=== PATIENT | female | born 1980 | race Caucasian/White ===

== ENCOUNTER 2021-03-12 09:37 | Outpatient (CLI) | payer OTHER, SELFPAY ==
--- NOTE | ~2021-03-12 | MMUS_ITS ---
EXAMINATION: MM diagnostic [facility] BI w brendan, US breast LT limited HISTORY: Painful lump at the 9:00 location of the left breast TECHNIQUE: Craniocaudal, mediolateral, and mediolateral oblique 3-D tomosynthesis images of the left breast were performed and synthetic 2-D images were generated. CAD analysis was submitted and interpr eted. High resolution limited left breast ultrasound was performed. COMPARISON: None, baseline BREAST PARENCHYMAL COMPOSITION: The breasts are heterogeneously dense, which may obscure small masses . FINDINGS: MAMMOGRAPHIC FINDINGS: There is no evidence of suspicious mass, calcification, or architectural distortion to suggest malig kelin. No mammographic correlate is identified for the reported palpable left breast lump. ULTRASOUND: There is an 8 mm x 4 mm oval, hypoechoic mass with indistinct margins at the 9:00 location with the n ipple corresponding to the area of palpable concern which appears to be within the skin. There is inc reased vascularity to this region. IMPRESSION: 1. Likely small focus of skin infection in the left breast corresponding to the palpable abnormality of concern. 2. Recommend repeat targeted left breast ultrasound in approximately four weeks after antibiotic ther apy to evaluate for resolution. If findings do not improve after antibiotic therapy, ultrasound-guide d biopsy would be recommended. BI-RADS category 4, suspicious findings. Reviewed, dictated and finalized at location A. IMPRESSION: 1. Likely small focus of skin infection in the left breast corresponding to the palpable abnormality of concern. 2. Recommend repeat targeted left breast ultrasound in approximately four weeks after antibiotic therapy to evaluate for resolution. If findings do not improv e after antibiotic therapy, ultrasound-guided biopsy would be recommended. BI-RADS category 4, suspicious findings.
== END 2021-03-12 09:38 | disposition home or self-care (01) ==
LOC: ANHIMG 09:41
PROVIDERS: PCP Family Medicine; Visit Provider Nurse Practitioner Obstetrics & Gynecology
DX: Z12.31 Encounter for screening mammogram for malignant neoplasm of breast (principal); N63.20 Unspecified lump in the left breast, unspecified quadrant; R92.8 Other abnormal and inconclusive findings on diagnostic imaging of breast
CPT/HCPCS: 76642; 77062; 77066; G0279

== ENCOUNTER 2023-10-20 09:01 | Outpatient (CLI) | payer OTHER, SELFPAY ==
--- NOTE | ~2023-10-20 | MM_ITS ---
EXAMINATION: MM screening [facility] BI w brendan HISTORY: Screening mammogram TECHNIQUE: Craniocaudal and mediolateral oblique 3-D tomosynthesis images were obtained and synthetic 2-D images were generated. CAD analysis was submitted and interpreted. COMPARISON: 03/12/2021 BREAST PARENCHYMAL COMPOSITION: The breasts are heterogeneously dense, which may obscure small masses . FINDINGS: RIGHT BREAST: An asymmetry is present in the posterior third breast 8 cm deep to, and in line with, t he nipple axis on the mediolateral oblique view. LEFT BREAST: There is an asymmetry in the posterior third of the breast just below the nipple axis 7 cm from the nipple on the mediolateral oblique view. IMPRESSION: 1. Bilateral breast asymmetries. 2. Additional mammographic views and possible breast ultrasound are recommended. BI-RADS Category 0: Incomplete: Needs additional imaging evaluation. Reviewed, dictated and finalized at location A. 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 Bilateral breast asymmetries. 2. Additional mammographic views and possible breast ultrasound are recommended . BI-RADS Category 0: Incomplete: Needs additional imaging evaluation.
== END 2023-10-20 09:02 | disposition home or self-care (01) ==
LOC: ANHIMG 09:04
PROVIDERS: PCP Family Medicine; Visit Provider Nurse Practitioner Family
DX: Z12.31 Encounter for screening mammogram for malignant neoplasm of breast (principal); R92.8 Other abnormal and inconclusive findings on diagnostic imaging of breast
CPT/HCPCS: 77063; 77067

== ENCOUNTER 2023-11-21 10:29 | Outpatient (CLI) | payer OTHER, SELFPAY ==
--- NOTE | ~2023-11-21 | MMUS_ITS ---
EXAMINATION: MM diagnostic katie BI w brendan, US breast BI complete HISTORY: Follow-up breast asymmetries TECHNIQUE: Additional 3-D tomosynthesis images of the breasts were performed and synthetic 2-D images were generated. CAD analysis was submitted and interpreted. High resolution bilateral complete breas t ultrasound was performed. COMPARISON: Comparison to multiple prior studies sequentially, with oldest reviewed study dated 03/12. BREAST PARENCHYMAL COMPOSITION: Dense: The breasts are heterogeneously dense, which may obscure small masses FINDINGS: MAMMOGRAPHIC FINDINGS: There are no suspicious masses, calcifications or architectural distortion in either breast to sugges t malignancy. ULTRASOUND: Complete bilateral US of all 4 quadrants of the breasts and retroareolar region was reviewed. At 2:00 near the nipple there is a cluster of microcysts measuring 5 mm. At 2:00 P nipple there is a second cluster of microcysts measuring 6 mm. Left breast: There are small microcysts at 11:00, 5 cm from the nipple. There is a cluster of microcy sts at 1:00, 3 cm from the nipple measuring 5 mm. No suspicious sonographic abnormalities to suggest malignancy. IMPRESSION: 1. No evidence for malignancy in either breast. Benign findings. 2. Routine yearly screening mammogram and regular clinical breast examination are recommended. BI-RADS Category 2: Benign finding(s). Reviewed, dictated and finalized at location A. 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 No evidence for malignancy in either breast. Benign findings. 2. Routine yearly screening mammogram and regular clinical breast examination a re recommended. BI-RADS Category 2: Benign finding(s).
== END 2023-11-21 10:30 | disposition home or self-care (01) ==
PROVIDERS: PCP Family Medicine; Visit Provider Nurse Practitioner Family
DX: R92.8 Other abnormal and inconclusive findings on diagnostic imaging of breast (principal)
CPT/HCPCS: 76641; 77062; 77066; G0279

== ENCOUNTER 2025-02-28 08:55 | Outpatient (CLI) | payer OTHER, SELFPAY ==
--- NOTE | ~2025-02-28 | MM_ITS ---
EXAMINATION: MM screening [facility] BI w brendan HISTORY: Screening TECHNIQUE: Craniocaudal and mediolateral oblique 3-D tomosynthesis images were obtained and synthetic 2-D images were generated. CAD analysis was submitted and interpreted. COMPARISON: 10/20/2023 and 03/12/2021. BREAST PARENCHYMAL COMPOSITION: The breasts are heterogeneously dense, which may obscure small masses . FINDINGS: There is no evidence of suspicious mass, calcification, or architectural distortion to sugg est malignancy in either breast. There has been no suspicious interval change. IMPRESSION: 1. No mammographic evidence of malignancy. 2. Recommend routine screening mammography in one year. BI-RADS Category 1: Negative Reviewed, dictated and finalized at location B.
--- OUTSIDE RECORDS SUMMARY | 2025-02-28 09:00 | XMS_ITS | Continuity of Care Document ---
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 [address] , [address], [place], [address], [place]. tel:[phone] Family History Family Member Type Diagnosis Age At Onset No Information Payers Payer name Insurance type Covered alliance party ID Authornadinea marguerite(s) [facility] Out Of State [id number] Social History Type Description Quantity Date Captured Comments Sex Female Smoking Status No Information Chief Complaint And Reason For Visit No Information Reason For Referral Reason For Referral No Information History Of Present Illness Encounter Date Complaint History Of Prese nt Illness No Information Functional Status Date Functional Assessmen t No Information Instructions Date Instruction Additional Infor mation No Information Assessments Type Assessment Date No Information Patient Care Teams Name Effective Dates (start - stop) Status Members No Information
--- OUTSIDE RECORDS SUMMARY | 2025-02-28 09:00 | XMS_ITS | Data Portability ---
Author Organization 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 Patient will come back in a year unless there are new symptoms. Not available 06/28/2022 10:39:29 10/20/2023 10/20/2023 Annual gynecological exam performed. Patient will come back in a year unless there are new symptoms. [email or web address] Not available 10/20/2023 11:51:26 Plan of Treatment Reminders Order Date Submit Date Provider Last Modified By Organization Details Last Modified Time Details Appointments [facility] 2024 08:00A M YOSI BISWAS NP Not available Not available Not available Lab None recorded. Referral None recorded. Procedures None recorded. Surgeries None recorded. Imaging None recorded. Medication Orders EluRyng 0.12 mg-0.015 mg/24 hr vaginal ring 2023 024 [facility] [place], [address], 10/20/2023 12:11:59 EluRyng 0.12 mg-0.015 mg/24 hr vaginal ring 2021 022 [facility], [address] [place], [address], 06/28/2022 10:49:18 NuvaRing 0.12 mg-0.015 mg/24 hr vaginal 2020 021 [email or web address] [facility], [address] [place], [address], 05/17/2021 17:35:46 Bactrim DS 800 mg-160 mg tablet 2020 021 [email or web address] [facility], [address] [place] [address], [id number], 05/12/2021 12:39:27 Diflucan 200 mg tablet 2020 021 [facility], [address] [place] [address], [address], 06/28/2022 10:41:09 NuvaRing 0.12 mg-0.015 mg/24 hr vaginal 2019 020 INTERFACE [facility], [address] [place] [address], [id number], 04/04/2020 11:08:56 Patient TargetsNo targets recorded. Patient InstructionsNo instructions recorded. Reason for Referral None Reported. Results Created Date Observation Date Name Description Value Unit Range Abnormal Flag Note LastModifiedBy Organization Detail LastModifiedTime 05/17/20 21 05/17/2021 IMAGE GUIDE D PAP AND HPV REGAR DLESS image guided Pap, HPV regardless of Pap result SEE RESULT S BELOW CASE REPOR T: Cytol ogy Gynec ologi isabella Repor t Case: [id number] Autho ale andrews Provi diego: Nikkie Sheridan CNM Colle cted: 05/17 1649 Order ing Locat ion: [place] Patho logy Recei sebastien: 05/18 0147 First Scree n: McBri de, Ashlee ret, CT Speci men: Scree laura Pap - Image d, Cervi x STATE MENT OF ADEQU ACY: Satis facto ry for evalu ation Trans forma tion zone compo nent prese nt FINAL DIAGN OSIS: Negat ailyn for Intra epith elial Lesio n or Petar neville (NIL) Elect chkiamiracle lawrence d by Ashlee Murguia ret, CT on 2020 at 9:18 AM ----- ----- ----- ----- ----- ----- ----- ----- ----- ----- ----- ----- ----- ----- ----- ----- ----- ---- HPV RESUL TS: HPV mRNA E6/E7 : No HPV mRNA Detec charlie NOTE: This high risk HPV mRNA assay detec ts fourt een high- risk HPV types (16, 18, 31, 33, 35, 39, 45, 51, 52, 56, 58, 59, 66, 68) witho ut diffe renti ation . COMME NT: Note: This speci men was revie wed by a Cytot echno logis t and/o r Patho logis t (as indic ated in this repor t) after evalu ation using the Thinp rep Imagi ng Syste m. CLINI ISABELLA INFOR MATIO N: Menst rual Statu s: LMP (if appli cable ): 2020 Clini isabella Histo ry/Pr eviou s Pap: Type of Neopl taqueria (if appli cable ): Signi fican t Clini isabella Findi ngs: Other Histo ry: Hormo sheryl (if appli cable ): PAP EDUCA PORTER L NOTE: The Pap Test is a scree laura test with an inher ent false negat ailyn rate. Liqui d-bas e sampl ing may decre ase, but will not elimi parag, false negat ailyn resul ts. A negat ailyn resul t does not precl ude the prese nce and/o r devel opmen t of disea se, since the prese nce of abnor mal cells in the sampl e depen ds on the locat ion of the lesio n and sampl ing techn ique. Mrata nued regul ar scree laura is the best metho d of cance r preve ntion . If repor charlie cytol ogic findi ng do not corre late with physi isabella and/o r histo rical findi ngs, furth er inves tigat ion is recom sarah d, as clini alonzo brown nted. Not Available [facility] (Lab) [address] [facility] [address], [place], [address], 05/19/2021 10:21:27 10/20/19 24 10/20/2023 IMAGE GUIDE D PAP AND HPV REGAR DLESS image guided Pap, HPV regardless of Pap result SEE RESULT S BELOW CASE REPOR T: Cytol ogy Gynec ologi isabella Repor t Case: [id number] Autho lae juliana Provi diego: Sivakumar Carmichael Colle cted: 10/20 1319 [employer] Order ing Locat ion: [place] Patho [place]y Recei sebastien: 10/23 0628 First Scree n: Junie Miller, CT Rescr een: Ashlee Murguia ret, CT Speci men: Brittany sanchez Pap - Image d, Cervi x STATE MENT OF ADEQU ACY: Satis facto ry for evalu ation Trans forma tion zone compo nent prese nt FINAL DIAGN OSIS: Negat ailyn for Intra epith elial Neema stanton or Petar neville (NIL) . Delano garcia howard d by Ashlee Murguia ret, CT on 2023 at 4:09 PM ----- ----- ----- ----- ----- ----- ----- ----- ----- ----- ----- ----- ----- ----- ----- ----- ----- ---- HPV RESUL TS: HPV mRNA E6/E7 : No HPV mRNA Detec charlie NOTE: This high risk HPV mRNA assay detec ts fourt een high- risk HPV types (16, 18, 31, 33, 35, 39, 45, 51, 52, 56, 58, 59, 66, 68) witho ut diffe renti ation . COMME NT: This speci men was revie wed by a Cytot echno logis t and/o r Patho logis t (as indic ated in this repor t) after evalu ation using the Thinp rep Imagi ng Syste m. CLINI ISABELLA INFOR MATIO N: Menst rual Statu s: LMP (if appli cable ): Clini isabella Histo ry/Pr eviou s Pap: Type of Neopl taqueria (if appli cable ): Signi fican t Clini isabella Findi ngs: Other Histo ry: Hormo sheryl (if appli cable ): PAP EDUCA PORTER L NOTE: The Pap Test is a scree laura test with an inher ent false negat ailyn rate. Liqui d-bas ed sampl ing may decre ase, but will not elimi parag, false negat ailyn resul ts. A negat ailyn resul t does not precl ude the prese nce and/o r devel opmen t of disea se, since the prese nce of abnor mal cells in the sampl e depen ds on the locat ion of the lesio n and sampl ing techn ique. Marta nued regul ar scree laura is the best metho d of cance r preve ntion . If repor charlie cytol ogic findi ng do not corre late with physi isabella and/o r histo rical findi ngs, furth er inves tigat ion is recom sarah d, as clini alonzo brown nted. Not Available [facility] (Lab) [address], [place], [address], 10/24/2023 17:13:56 03/15/20 21 03/12/2021 MAMMO , diagn ostic , digit al, bilat eral No observ ation record ed. [facility] [address], [place], [address], 03/18/2021 13:40:46 Result Notes None recorded. Problems Name Problem SNOMED Code Status Onset Date Resolution Date Notes Provider Name and Address Organization Details Recorded Time SNOMED CT Concept Completed 201905/12/2021 Encntr for stereotype caster exam (general ) (routine ) w/o abn findings ;Recorde d Elsewher e: No Locat ion: [facility] S ource: EHR Admissions Advisor jeffy: N Practi ce ID: 0001 Omar lable Time: 11:15:00 AM Deja Glez [facility] 1 12:39:46 Insertio n of intraute rine contrace ptive device Completed 201205/12/2021 INSERTIO N OF IUD;Carson rded Elsewher e: No Locat ion: [facility] S ource: EHR Admissions Advisor jeffy: N Practi ce ID: 0001 Omar lable Time: 09:30:00 AM Deja Glez [facility] 1 12:39:51 Screenin g for malignan t neoplasm of cervix Completed 201605/12/2021 Screenin g for malignan t neoplasm s of the cervix;R ecorded Elsewher e: No Locat ion: [facility] S ource: EHR Admissions Advisor jeffy: N Practi ce ID: 0001 Omar lable Time: 05:00:00 PM Deja marshall [facility] 1 12:39:42 Educatio n Completed 201905/12/2021 Encounte r for other general counseli ng and advice on contrace ption;Re corded Elsewher e: No Locat ion: [facility] Source: EHR Admissions Advisor jeffy: N Practi ce ID: 0001 Omar lable Time: 10:00:00 AM Deja marshall [facility] 1 12:39:48 Removal of intraute rine device Completed 201107/10/2012 REMOVAL OF IUD;Carson rded Elsewher e: No Locat ion: [facility] S ource: EHR Admissions Advisor jeffy: N Practi ce ID: 0001 Omar lable Time: 11:00:00 AM Deja marshall [facility] 1 12:39:52 Body mass index 25-29 - overweig ht [id number] Completed 201605/12/2021 Body mass index (BMI) 27.0-27. 9, adult;Re corded Elsewher e: No Locat ion: [facility] S ource: EHR Admissions Advisor jeffy: N Vaughnti ce ID: 0001 Omar lable Time: 05:00:00 PM Deja marshall, [facility] 1 12:39:40 Removal of intraute rine device Completed 201705/12/2021 Encoun r for removal of intraute rine contrace ptive device;R ecorded Elsewher e: No Locat ion: [facility] S ource: EHR Admissions Advisor jeffy: N Vaughnti ce ID: 0001 Omar lable Time: 08:00:00 AM Deja marshall, [facility] 1 12:39:52 Pregnanc y test negative [id number] Completed 201205/12/2021 Pregnanc y examinat ion or test, negative result;R ecorded Elsewher e: No Locat ion: [facility] S ource: EHR Admissions Advisor jeffy: N Vaughnti ce ID: 0001 Omar lable Time: 09:30:00 AM Deja marshall, [facility] 1 12:39:43 Disorder of intraute rine contrace ptive device Completed 201605/12/2021 [facility] compl of intraute rine contrace ptive device, init encntr;R ecorded Elsewher e: No Locat ion: [facility] S ource: EHR Admissions Advisor jeffy: N Vaughnti ce ID: 0001 Omar lable Time: 05:00:00 PM Deja marshall, [facility] 1 12:39:45 Problem Notes None recorded. Procedures Surgical History Date Name Laterality Status Provider Name and Address Organization Details Recorded Time 4 Date of Last Mammogram completed Vale Plaza [facility] 10/20/2023 11:59:42 1 Date of Last Pap Smear completed Tyesha Caba [facility] 06/28/2022 10:41:33 Imaging Results None recorded. Procedure Notes None recorded. Medical Equipment None Reported. Allergies Allergen ID Allergen Name Allergen Category Reaction Reaction Severity Criticality Documentation Date Start Date Code Code System Note Provider Name and Address Organization Details Recorded Time Fluarix medicatio n Not available Not available Not available 03/11/2021 18144 UNK Tyesha Caba [facility] 1 16:04:39 Medications Name Sig Start Date Stop Date Status Note LastModified by Organization Details LastModified Time prednison e 10 mg tablet TAKE 5 TABLETS BY MOUTH ONCE DAILY FOR 2 DAYS, THEN TAKE 4 TABLETS BY MOUTH FOR 3 DAYS, THEN 3 TABLETS FOR 3 DAYS, THEN 2 TABLETS FOR 3 DAYS, THEN 1 TABLET FOR 3 DAYS, THEN TAKE 1/2 (ONE-HILARIO F) TABLET FOR 2 DAYS 06/28 completed Not Available Not Available Not Available ketoconaz ole 2 % shampoo WASH TO AFFECTED AREAS ON FACE DAILY UNTIL CONTROLL ED THEN TWICE WEEKLY FOR MAINTENA NCE 06/28 completed Not Available Not Available Not Available fluconazo le 150 mg tablet TAKE TWO TABLETS BY MOUTH TODAY THEN REPEAT IN 1 WEEK 03/11 completed Not Available Not Available Not Available valacyclo vir 1 gram tablet TAKE 1 TABLET BY MOUTH EVERY 12 HOURS active Not Available Not Available No t Available Adderall 5 mg tablet take 1 tablet by oral route 2 times every day before breakfas t and at noon 06/28 completed Not Available Not Available Not Available fluconazo le 200 mg tablet TAKE 1 TABLET BY MOUTH EVERY OTHER DAY 06/28 completed Not Available Not Available Not Available metronida zole 0.75 % (37.5 mg/5 gram) vaginal gel Insert 1 applicat orful every day by vaginal route at bedtime for 5 days. 03/11 completed Not Available Not Available Not Available ondansetr on HCl 4 mg tablet TAKE 1 TABLET BY MOUTH EVERY 8 HOURS NEEDED FOR NAUSEA AND FOR VOMITING active Not Available Not Available No t Available sulfameth oxazole 800 mg-trimet hoprim 160 mg tablet TAKE 1 TABLET BY MOUTH EVERY 12 HOURS FOR 5 DAYS 05/12 completed Not Available Not Available Not Available dextroamp hetamine- amphetami ne 30 mg tablet TAKE 1 TABLET BY MOUTH ONCE DAILY IN THE MORNING WITH BREAKFAS T AND 1/2 (ONE-HILARIO F) NEEDED AT NOON active Not Available Not Available No t Available terbinafi ne HCl 250 mg tablet TAKE 1 TABLET BY MOUTH ONCE DAILY 06/28 completed Not Available Not Available Not Available alprazola m 0.5 mg tablet TAKE 1/2 (ONE-HILARIO F) TABLET BY MOUTH TWICE DAILY NEEDED FOR ANXIETY 10/20 completed Not Available Not Available Not Available alprazola m 0.25 mg tablet TAKE 1 TABLET BY MOUTH TWICE DAILY NEEDED FOR ANXIETY active Not Available Not Available No t Available clindamyc in 1 % topical gel APPLY 1 THIN LAYER TOPICALL Y TWICE DAILY active Not Available Not Available No t Available levothyro xine 50 mcg tablet TAKE 1 TABLET BY MOUTH ONCE DAILY active Not Available Not Available No t Available cephalexi n 500 mg capsule TAKE 1 CAPSULE BY MOUTH EVERY 8 HOURS 06/28 completed Not Available Not Available Not Available erythromy ilene 5 mg/gram (0.5 %) eye ointment 03/11 completed Not Available Not Available Not Available tacrolimu s 0.1 % topical ointment 03/11 completed Not Available Not Available Not Available bupropion HCl 75 mg tablet TAKE 1 TABLET BY MOUTH ONCE DAILY 10/20 completed Not Available Not Available Not Available epinephri ne 0.3 mg/0.3 mL injection , auto-inje ctor INJECT CONTENTS OF 1 PEN NEEDED FOR ALLERGIC REACTION active Not Available Not Available No t Available doxycycli ne hyclate 20 mg tablet TAKE 2 TABLETS BY MOUTH ONCE DAILY ON AN EMPTY STOMACH active Not Available Not Available No t Available ketoconaz ole 2 % topical cream APPLY CREAM TOPICALL Y TO AFFECTED AREA TWICE DAILY ON FACE AND EARS 05/17 completed Not Available Not Available Not Available fluoxetin e 20 mg capsule 03/11 completed Not Available Not Available Not Available tobramyci n 0.3 %-dexamet hasone 0.1 % eye drops,katherin pension 05/12 completed Not Available Not Available Not Available clindamyc in 1 % lotion APPLY TO RASH AREAS ON FACE TWICE DAILY 06/28 completed Not Available Not Available Not Available escitalop barney 10 mg tablet TAKE 1 TABLET BY MOUTH ONCE DAILY 03/11 completed Not Available Not Available Not Available levothyro xine 03/11 completed Not Available Not Available Not Available Adderall 03/11 completed Not Available Not Available Not Available NuvaRing 05/12 completed Not Available Not Available Not Available Tirosint 13 mcg capsule take 1 capsule by oral route every day 03/11 completed Prescrib ed Elsewher e: Yes Loca tion: [facility] M odify By: simon cosby DateTime : 07/10/20 12 11:00:00 AM Not Available Not Available Not Available Ozempic 0.25 mg or 0.5 mg (2 mg/1.5 mL) subcutane ous pen injector ADMINIST ER 0.25 MG UNDER THE SKIN WEEKLY FOR 4 DOSES active Not Available Not Available No t Available EluRyng 0.12 mg-0.015 mg/24 hr vaginal ring INSERT 1 RING INTO VAGINA ONCE EVERY FOUR WEEKS active Not Available Not Available No t Available Vitals Date Recorded Systolic blood pressure Diastolic blood pressure Provider Name and Address Organization Details Last Updated DateTime 10/20/2023 118 mm[Hg] 80 mm[Hg] Clare Ibrahim, [facility] [address], [place], [address], [facility] 10/20/2023 12:16:37 Date Recorded Body height Body mass index (BMI) Body weight Provider Name and Address Organization Details Last Updated DateTime 10/20/2023 157.48 cm 33.8 kg/m2 54656.59 g [address] [facility] 10/20/2023 11:53:34 Date Recorded Systolic blood pressure Diastolic blood pressure Provider Name and Address Organization Details Last Updated DateTime 03/11/2021 140 mm[Hg] 80 mm[Hg] Clare Ibrahim, [facility] [address], [place], [address], [facility] 03/11/2021 16:23:16 Date Recorded Body height Body mass index (BMI) Body weight Provider Name and Address Organization Details Last Updated DateTime 03/11/2021 157.48 cm 33.1 kg/m2 38025.94 g Tyesha Caba [facility] 03/11/2021 16:04:23 Date Recorded Body height Body mass index (BMI) Body weight Systolic blood pressure Diastolic blood pressure Provider Name and Address Organization Details Last Updated DateTime 04/04/2020 1920.24 cm 0.2 kg/m2 17084.74 g 120 mm[Hg] 84 mm[Hg] Hillary Teixeira [facility] 0 10:44:33 Date Recorded Body height Body mass index (BMI) Body weight Systolic blood pressure Diastolic blood pressure Provider Name and Address Organization Details Last Updated DateTime 05/17/2021 157.48 cm 33.5 kg/m2 95314.4 g 121 mm[Hg] 85 mm[Hg] Deja Glez [facility] 16:50:59 Date Recorded Systolic blood pressure Diastolic blood pressure Provider Name and Address Organization Details Last Updated DateTime 06/28/2022 122 mm[Hg] 70 mm[Hg] Clare Ibrahim, [facility] [address], [place], [address], [facility] 06/28/2022 10:42:58 Date Recorded Body height Body weight Provider Name and Address Organization Details Last Updated DateTime 06/28/2022 157.48 cm 83527.85 g Tyesha Caba [facility] 06/28/2022 10:40:03 Social History Question Answer Notes LastModified by Organizat ion Details LastModified Time Tobacco Smoking Status Never Smoker Tyesha Caba null, [facility] 06/28/2022 10:40:40 How Many Years Have You Consumed Alcohol? 20 Information not available 06/28/2022 Are You Blind Or Do You Have Difficulty Seeing? No Information n ot available 03/11/2021 What Is Your Level Of Caffeine Consumption? Moderate Information not available 03/11/2021 How Much Tobacco Do You Chew? None Information not available 06/28/2022 In The 14 Days Before Symptom Onset, Have You Had Close Contact With A Laboratory-confirm ed COVID-19 While That Case Was Ill? No Information n ot available 06/28/2022 In The 14 Days Before Symptom Onset, Have You Had Close Contact With A Person Who Is Under Investigation For COVID-19 While That Person Was Ill? No Information not available 06/28/2022 Have You Been To An Area Known To Be High Risk For COVID-19? No Information not available 06/28/2022 Are You Deaf Or Do You Have Serious Difficulty Hearing? No Information not available 03/11/2021 What Type Of Diet Are You Following? REGULAR Information n ot available 03/11/2021 What Is The Highest Grade Or Level Of School You Have Completed Or The Highest Degree You Have Received? [id number] Information not available 06/28/2022 Are There Any Guns Present In Your Home? Yes Information not available 06/28/2022 Do You Use Protection During Sex? No Information not available 06/28/2022 Do You Use Your Seat Belt Or Car Seat Routinely? Yes Information not available 03/11/2021 Are You Sexually Active? Yes Information not available 06/28/2022 Do You Have Smoke And Carbon Monoxide Detectors In Your Home? Yes Information not available 03/11/2021 How Much Tobacco Do You Smoke? No Information not available 06/28/2022 Do You Use Sunscreen Routinely? Yes Information not available 03/11/2021 Have You Used IV Drugs? No Information not available 06/28/2022 Sex: Unknown Functional Status Question Answer Note LastModified by Organizat ion Details LastModified Time Do you use any illicit or recreational drugs? No Information not available 03/11/2021 What is your level of alcohol consumption? Occasional Information not available 03/11/2021 Are you able to walk? 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 Occasional Information not available 03/11/2021 Mental Status Question Answer Note LastModified by Organization D etails LastModified Time Do you feel stressed (tense, restless, nervous, or anxious, or unable to sleep at night)? [id number] Information not available 03/11/2021 Family History Relationship Description Onset Age of this Age Resolved Age Notes LastModified by Organization Details LastModified Time Maternal Grandmother Diabetes mellitus [email or web address] Not available 2019 10:45:24 Maternal Grandmother Heart disease [email or web address] Not available 2019 10:45:38 Maternal Grandmother Hypertensive disorder [email or web address] Not available 2019 10:46:30 Maternal Grandmother Hypercholest erolemia [email or web address] Not available 2019 10:47:02 Paternal Grandmother Diabetes mellitus [email or web address] Not available 2019 10:45:24 Maternal Aunt Heart disease [email or web address] Not available 2019 10:45:38 Maternal Aunt Hypertensive disorder [email or web address] Not available 2019 10:46:30 Maternal Aunt Hypercholest erolemia [email or web address] Not available 2019 10:47:02 Maternal Grandfather Malignant neoplasm of lung [email or web address] Not available 2019 10:45:52 Maternal Grandfather Hypercholest erolemia [email or web address] Not available 2019 10:47:02 Paternal Grandfather Malignant neoplasm of bone [email or web address] Not available 2023 11:46:36 Mother Hypertensive disorder [email or web address] Not available 2019 10:46:30 Father Hypertensive disorder [email or web address] Not available 2019 10:46:30 Father Hypercholest erolemia [email or web address] Not available 2019 10:47:02 Unspecified Relation Disorder of thyroid gland [email or web address] Not available 2019 10:47:10 Medical History Condition Response Thyroid Problems Y Gynecological History Statement/Question Response Abnormal Pap N Date of Last Mammogram 10/20/2023 Flow Light Date of LMP N Was last menstrual period normal Y STIs/STDs N HPV Vaccine N Current Control Method Vaginal Rin g Date of control 05/13/2022 Sexually Active? Y Menses Monthly N Age of first menstrual cycle 14 Date of Last Pap Smear 05/17/2021 Sexual Problems? N Desired Control Method Sterilizati on LMP Unknown N Obstetrics History GPAL:G 0 P 0 0 0 0 Type Value Living 0 Total 0 Past Encounters Encounter ID Performer Location Encounter Start Date Encounter Closed Date Diagnosis/Indication Diagnosis SNOMED-CT Code Diagnosis ICD10 Code Diagnosis Note [id number] Clare Ibrahim [facility] [address],[place] [address] 04/04/2020 10:40:58 04/04/2020 11:22:41 Contraception care management [id number] Z30.9 Patient is here today for a medicaton check of control nuvaring. She voices goals of therapy have been met with use of this therapy. She denies neg side effects. She is eating, drinking, sleeping well; moods are stable & periods are well regulated. Wishes to continue this method of BC. Appropriat e to continue this medication . [id number] [facility] [address],[place] [address] 03/11/2021 15:51:15 03/11/2021 16:25:47 Mass of left breast [id number] N63.20 Z12.31 AGreed to imaging and abx as unsure if this is infection related. Time spent in visit is a total of 15 mins with at least 50% of visit consisting of counseling and review of plan of care. Additional precaution mariana measures were taken to minimize potential exposure to the Covid-19 virus during this patient s visit, including available hand rig manager upon arrive, temperatur e check and being asked a series of screening questions. All staff wore face coverings during this encounter, as well as provided additional cleaning and sanitizing of all surfaces, including countertop s, pens, chairs, door handles, light switches, etc, prior to and following the patient s visit. [id number] [facility] [address] [address] [address] 05/17/2021 16:43:20 05/17/2021 18:18:11 Gynecologic examination [id number] Z01.419 Z11.51 Take Calcium with Vitamin D 1200mg daily if not receiving in daily diet. It is strongly advised to have an annual flu shot and up can obtain at most pharmacies . If you have not had a TDap shot in the last 10 years you should obtain one as well. Discussed with patient & provided with informatio n regarding Gardisil vaccine to prevent the 4 strains for HPV that cause cervical cancer if under age 26. Encourage safe sexual practices, to use condoms and limit partners if not already in a monogamous relationsh ip. Do monthly self breast exams. Have mammogram yearly or every other year depending on family history. BRCA testing is now available for patients with strong genetic history of female cancer. If interested contact the office. Engage in daily exercise of low impact aerobic exercise 45-60 minutes 4-5 times weekly. Avoid tobacco and illicit drugs as well as using moderation with alcohol intake less than 1-2 8 oz beverages daily. This lifestyle behavior pattern will lead to less health conditions and longer life span. If BMI greater than 25 weight watchers or dietary consult advised. Patient received above instructio ns, and questions have been answered. If you have any questions please call or respond to this email. Patient was made aware of the patient portal and may obtain a paper copy of today's plan if desired. [id number] Clare Ibrahim [facility] [address] [address] 06/28/2022 10:16:23 06/28/2022 11:16:04 Gynecologic examination [id number] Z01.419 Suggested Calcium with Vitamin D 1200-1500m g daily. Patient advised to get an annual flu shot in the fall and she could obtain at [facility] or [facility] take care clinic. Also to obtain TDap vaccinatio n if you have not had one in the last 10 years. Recommend yearly mammograms . Encouraged monthly self breast exams. Encourage safe sexual practices, to use condoms and limit partners if not already in a monogamous relationsh ip. Engage in daily exercise of low impact aerobic exercise 45-60 minutes 4-5 times weekly. Avoid tobacco and illicit drugs as well as using moderation with alcohol intake less than 1-2 8 oz beverages daily. This lifestyle behavior pattern will lead to less health conditions and longer life span. If BMI greater than 25 weight watchers or dietary consult advised. All questions have been answered. Patient appears to understand informatio n, but if you have any questions please call or respond to this email. Pap/hpv q3yrs per asccpSTD Screen declinedGe netic Screen discussedC olon Screen naDexa Screen naRoutine Labs PCPMammo ordered Contracept ion care management [id number] Z30.9 Happy on Vag ringRF sent [id number] Clare Ibrahim , [facility] [address] [address] 10/20/2023 11:45:53 10/20/2023 12:18:22 Gynecologic examination [id number] Z01.419 Suggested Calcium with Vitamin D 1200-1500m g daily. Patient advised to get an annual flu shot in the fall and she could obtain at [facility] or [facility] clinic. Also to obtain TDap vaccinatio n if you have not had one in the last 10 years. Recommend yearly mammograms . Encouraged monthly self breast exams. Encourage safe sexual practices, to use condoms and limit partners if not already in a monogamous relationsh ip. Engage in daily exercise of low impact aerobic exercise 45-60 minutes 4-5 times weekly. Avoid tobacco and illicit drugs as well as using moderation with alcohol intake less than 1-2 8 oz beverages daily. This lifestyle behavior pattern will lead to less health conditions and longer life span. If BMI greater than 25 weight watchers or dietary consult advised. All questions have been answered. Patient appears to understand informatio n, but if you have any questions please call or respond to this email.Pap/ hpv sentSTD Screen declinedGe netic Screen discussedC olon Screen naDexa Screen naRoutine Labs PCPMammo ordered Contracept ion care management [id number] Z30.9 Happy on Vag ringRF sent Health Concerns Section Related Observation LastModified by Organization Detai ls LastModified Time None Recorded Concern Status LastModified by Organization Details LastModified Time None Recorded Advance Directives Directive None Recorded Payers Encounter Date Sequence Insurance Name Policy Number Policy Silver Covered Member ID Silver Member ID Guarantor Name 04/04/2020 1 [facility] [id number] Estephania Gaviria Sillery [id number] Estephania Ochoalery 03/11/2021 1 [facility] [id number] Estephania Gaviria Sillery [id number] Estehpania Ochoalery 05/17/2021 1 [facility] [id number] Estephania Gaviria Sillery [id number] Estephania Gaviria Sillery 06/28/2022 1 [facility] [id number] Estephania Gaviria Sillery [id number] Estephania Gaviria Sillery 10/20/2023 1 [facility] [id number] Estephania Ochoalery [id number] Estephania Ochoalermarek Notes Date Note Type Note Provider Name and Address Organization Details Recorded Time 04/04/2020 text/html Patient is here today for a medicaton check of control nuvaring. She voices goals of therapy have been met with use of this therapy. She denies neg side effects. She is eating, drinking, sleeping well; moods are stable & periods are well regulated. Wishes to continue this method of BC. Appropriate to continue this medication. CAROL Ayers- [address], [place], [address], [facility] 04/04/2020 11:08:56 03/11/2021 text/html Here for concern s of left breast. Noticed this area approx 5 days ago. Red, tender, felt a lump near nipple. Does feel inflammation has decreased but area still present. Has never had a mammo screening yet Breast ROS: Neg Nipple discharge Neg Skin discoloration or texture changes + Left Breast Lump/Mass Neg Family Hx of breast cancer/other cancers + Left Tenderness/pain Neg Trauma to breast Neg Underwire or ill fitting bras Neg notable assymetry of breasts DARYL Ayers [address], [place], [address], [facility] 03/11/2021 16:25:16 05/17/2021 text/html Annual GYNReport ed bypatient.Menstrual cycle:Normal menses Urinary symptoms:No hematuria; No incontinence Vulva:No genital lesion Vagina:Normal vaginal discharge Breast:No breast pain; No breast lump; No nipple discharge Sexual complaints:No sexual complaints; No pain during intercourse; Normal libido Menopausal Symptoms:No menopausal symptoms; Normal vaginal lubrication Psychological symptoms:No depression; No anxiety; No PMDD Nikkie Guadalupe rolando [facility] 05/17/2021 17:36:16 06/28/2022 text/html Annual GYNReport ed bypatient.History:n o gynecologic complaints Menstrual cycle:Normal menses Urinary symptoms:No hematuria; No incontinence Vulva:No genital lesion Vagina:Normal vaginal discharge Breast:No breast pain; No breast lump; No nipple discharge Current Contraception:Satis fied with current contraception; Nuvaring Sexual complaints:No sexual complaints; No pain during intercourse; Normal libido Menopausal Symptoms:No menopausal symptoms; Normal vaginal lubrication Psychological symptoms:No depression; No anxiety; No PMDD Preventive measures:Encourage self breast examination; Encourage regular exercise; Encourage no tobacco use; Encourage regular mammograms starting age 40; Followed with yearly pap smears; Needs to schedule mammogram DARYL Ayers [address], [place], [address], [facility] 06/28/2022 10:54:47 10/20/2023 text/html Annual GYNReport ed bypatient.History:n o gynecologic complaints Menstrual cycle:Normal menses Urinary symptoms:No hematuria; No incontinence Vulva:No genital lesion Vagina:Normal vaginal discharge Breast:No breast pain; No breast lump; No nipple discharge Current Contraception:Satis fied with current contraception; Nuvaring Sexual complaints:No sexual complaints; No pain during intercourse; Normal libido Menopausal Symptoms:No menopausal symptoms; Normal vaginal lubrication Psychological symptoms:No depression; No anxiety; No PMDD Preventive measures:Encourage self breast examination; Encourage regular exercise; Encourage no tobacco use; Encourage regular mammograms starting age 40; Followed with yearly pap smears DARYL Ayers [address], [place], [address], [facility] 10/20/2023 12:18:08 OBGyn Episode No OBEpisode recorded.
--- OUTSIDE RECORDS SUMMARY | 2025-02-28 09:00 | XMS_ITS | Patient Health Record ---
Author Organization [facility] [employer] [place] ([address]) Address [address] [place] [address] Care Team Providers Care Bleacher Operator Name Role Phone Carlito Guaman Unavailable [phone] [employer], Provider Unavailable Unavailab le Allergies Allergen (clinical drug ingredient) Drug/Non Drug Allergy documented on EMR Reaction Allergy Type Onset Date Status FLU SHIELD (uncoded) rash Allergy Active Reason For Referral No Information Medications Medication SIG (Take, Route, Frequency, Duration) Notes Start Date End Date Status Vitamin D2 50 MCG 1 CAP(S) ORALLY ONCE A DAY *Please review and pick correct strength-formulati on from Medispan options. If intended option is not shown, discontinue and re-order from Quick Search* Active PriLOSEC OTC 20 MG 1 tab(s) orally once a day for 14 day(s) Active Fluticasone Propionate 50 MCG/ACT 2 spray(s) in each nostril BID for 30 day(s) 03/06/2023 Active Cetirizine HCl 10 MG 1 tab(s) orally once a day for 30 days 03/06/2023 Active ADDERALL 30 mg 1 tab(s) orally 2 times a day for 30 day(s) Active EPIPEN 2-KENNY 0.3 mg as directed intramuscularly once for 30 days 03/06/2023 Active XANAX 0.25 mg 1 tab(s) orally ever y 8 hours Active Adderall 30 MG 1 tab(s) orally 2 times a day for 30 day(s) Active FLUTICASONE NASAL 50 mcg/inh 2 spray(s) in each nostril BID for 30 day(s) 03/06/2023 Active VITAMIN D2 50 mcg 1 cap(s) orally once a day Active Xanax 0.25 MG 1 tab(s) orally ever y 8 hours Active CETIRIZINE 10 mg 1 tab(s) orally once a day for 30 days 03/06/2023 Active PRILOSEC OTC 20 mg 1 tab(s) orally once a day for 14 day(s) Active NASAL WASHES N/A DIRECTED INTRANASALLY NEEDED for 30 *Please review for potential replacement for e-prescription and drug interaction check* 03/06/2023 Active EpiPen 2-Kenny 0.3 MG/0.3ML as directed intramuscularly once for 30 days 03/06/2023 Active Social History Tobacco Use: Social History Observation Description Date Details (start date - stop date) Never Smoker NA - NA Smoking Smart Form: Question Answer Notes Are you a: never smoker Problems Problem Type SNOMED Code ICD Code Onset Dates Problem Status W/U Status Risk Notes Problem Chronic allergic conjunctivitis (60232268) Other chronic allergic conjunctivitis (H10.45) Active confirmed Problem Allergic rhinitis caused by pollen (disorder) (27640974) Allergic rhinitis due to pollen (J30.1) Active confirmed Problem Allergic rhinitis (56168430) Other allergic rhinitis (J30.89) Active confirmed Problem Adverse reaction to component of vaccine product containing virus antigen (disorder) (808014709) Adverse effect of other viral vaccines, initial encounter (T50.B95A) Active confirmed Problem Allergic rhinitis caused by animal hair and dander (448449108835924) Allergic rhinitis due to animal (cat) (dog) hair and dander (J30.81) Active confirmed Problem Eruption of skin (157443539) Rash and other nonspecific skin eruption (R21) Active confirmed Problem Chronic cough (87549573) Chronic cough (R05.3) Active confirmed Encounters Encounter Location Date Provider Diagnosis NIKA - Shannan [address] [place] [id number] 03/09/2024 Provider MARY LOU-Luisa Allergic rhinitis due to pollen J30.1 Assessments Encounter Date Diagnosis (ICD Code) Assessment Notes Treatment Notes Treatment Clinical Notes Section Notes 03/09/2024 Allergic rhinitis due to pollen (ICD-10 - J30.1) Plan Of Treatment No Information Insurance Providers Payer Name Payer Address Payer Phone Subscriber Number Group Number Insured Name Patient Relationship to Insured Coverage Start Date Coverage End Date [facility] Choice Plus [address] [address] [place] [address] [id number] Estephania Zaabla Self - patient is the insured Medical (General) History Medical History History ICD Code ADHD Anxiety Vitamin D deficiany GERD Surgical History Surgery Date(Month/Year)
--- OUTSIDE RECORDS SUMMARY | 2025-02-28 09:00 | XMS_ITS ---
Author Organization [facility] [employer] [facility] [place] ([address]) Address [address] [place] [address] Care Team Providers Care Beekeeper Name Role Phone Carlito Guaman Unavailable [phone] [employer], Provider Unavailable Unavailab le Allergies Allergen (clinical drug ingredient) Drug/Non Drug Allergy documented on EMR Reaction Allergy Type Onset Date Status FLU SHIELD (uncoded) rash Allergy Active [facility]IT [facility] Encounter Medications Medication SIG (Take, Route, Frequency, Duration) [...] nostril BID for 30 day(s) 03/06/2023 Active NASAL WASHES N/A DIRECTED INTRANASALLY NEEDED for 30 *Please review for potential replacement for e-prescription and drug interaction check* 03/06/2023 Active EpiPen 2-Kenny 0.3 MG/0.3ML as directed intramuscularly once for 30 days 03/06/2023 Active Cetirizine HCl 10 MG 1 tab(s) orally once a day for 30 days 03/06/2023 Active Adderall 30 MG 1 tab(s) orally 2 times a day for 30 day(s) Active Xanax 0.25 MG 1 tab(s) orally ever y 8 hours Active Encounters Encounter Location Date Provider Diagnosis [address] [place] [address] 03/09/2024 Provider Naeem Allergic rhinitis due to pollen J30.1 Assessments Encounter Date Diagnosis (ICD Code) Assessment Notes Treatment Notes Treatment Clinical Notes Section Notes 03/09/2024 Allergic rhinitis due to pollen (ICD-10 - J30.1) Plan Of Treatment Medication Medication Name Sig Start Date Stop Date Notes Fluticasone Propionate 50 MCG/ACT 2 spray(s) in each nostril BID for 30 day(s) 03/06/2023 NASAL WASHES N/A DIRECTED INTRANAS ALLY NEEDED for 30 03/06/2023 *Please review for potential replacement for e-prescription and drug interaction check* EpiPen 2-Kenny 0.3 MG/0.3ML as directed intramuscularly once for 30 days 03/06/2023 Cetirizine HCl 10 MG 1 tab(s) orally onc e a day for 30 days 03/06/2023 Progress Notes * TEAStefania FosterbraydenDOB:1980 (44 yo F)Acc No.[id number]:03/09/2024 Patient: Estephania GONZALEZ Provider: Surya Moran :1980 A ge:43 Y S ex:Female Date:03/09/2024 Address:[address] [place], [place] [id number] Subjective: * Chief Complaints: * 1 . Multum To Medispan Conversion Encounter. * Medical History: * Medications: T aking PriLOSEC OTC 20 MG Tablet Delayed Release 1 tab(s) orally once a day , Taking Vitamin D2 50 MCG CAPSULE 1 CAP(S) ORALLY ONCE A DAY , Notes to Pharmacist: *Please review and pick correct strength-formulation from Medispan options. If intended option is not shown, discontinue and re-order from Quick Search*, Taking Xanax 0.25 MG Tablet 1 tab(s) orally every 8 hours , Taking Adderall 30 MG Tablet 1 tab(s) orally 2 times a day * Allergies: F CLEO SHIELD: rash. Objective: * Vitals: Assessment: * Assessment: 1. A llergic rhinitis due to pollen - J30.1 (Primary) Plan: * Treatment: * Billing Information: * Visit Code: * Procedure Codes: * Electronic signature of Ronaldo BARRETO-Migration on 02/28/2025 at 09:00 AM CDT Sign off status: Pending * Provider: Surya sheridan Migration Date: 03/09/2024 Generated for Irene owen/Christie/Sofie on: 02/28/2025 09:00 AM CDT
--- OUTSIDE RECORDS SUMMARY | 2025-02-28 09:01 | XMS_ITS | Referral Summary ---
Author Organization [facility] Address [address] [place] [address] Care Team Providers Care Humidifier Maintenance Worker Name Role Phone Fercho Kumar MD Unavailable [phone] Mitch Barrera MD Primary Care Provider Allergies Active Allergy Reactions Criticality Noted Date Comments Flu Vaccine 2010 (36 Mos+)(Pf) Other (See comments) Low 08/01/2015 Medications tobramycin-dexAM ETHasone (TOBRADEX) ophthalmic solution Administer 1 drop into both eyes every 2 (two) hours while awake 10 mL 2 0 Active tacrolimus (PROTOPIC) 0.1 % ointmentIndicati ons:Eyelid dermatitis, allergic/contact ,Eczema, unspecified type Use twice a day on eyelids 100 g 3 0 Active ALPRAZolam (XANAX) 0.25 mg tablet TAKE 1 TABLET BY MOUTH ONCE DAILY NEEDED FOR ANXIETY 0 Active dextroamphetamin e-amphetamine (ADDERALL) 30 mg tablet 0 Active levothyroxine (SYNTHROID) 50 mcg tablet Take 50 mcg by mouth daily 0 Active ondansetron (ZOFRAN) 4 mg tablet TAKE 1 TABLET BY MOUTH EVERY 8 HOURS NEEDED FOR NAUSEA AND VOMITING 0 Active Active Problems Problem Noted Date Diagnosed Date Skin lesion of breast 04/05/2021 Acute conjunctivitis of both eyes 12/19/2019 Social History Tobacco Use Types Packs/Day Years Used Date Smoking Tobacco: Former Cigarettes 0.4 5 1 998 - 2002 Smokeless Tobacco: Never Comments Unknown Sex and Gender Information Value Date Recorded Sex Assigned at Not on file Legal Sex Female 7:36 AM CDT Gender Identity Female 01/30/2020 7:43 AM CDT Sexual Orientation Not on file Last Filed Vital Signs Vital Sign Reading Time Taken Comments Blood Pressure - - Pulse - - Temperature - - Respiratory Rate - - Oxygen Saturation - - Inhaled Oxygen Concentration - - Weight 77.1 kg (170 lb) 04/05/2021 3:21 PM CDT Height 160 cm (5' 3) 04/05/2021 3:21 PM CDT Body Mass Index 30.11 04/05/2021 3:21 PM CDT Plan of Treatment Not on file Insurance [facility] [employer] Address: [place] [address] [facility] HMO/PPO Address: [address] [place] [address] Care Teams Humidifier Maintenance Worker Relationship Specialty Start Date End Date Mitch Barrera MD [address] [place], [place] [id number] PCP - General Family Practice 03/22/21 Fercho Kumar MD [address] [place], [place] [id number] Referring Physician Obstetrics and Gynecology 03/15/21
--- OUTSIDE RECORDS SUMMARY | 2025-02-28 09:01 | XMS_ITS | Clinical Summary ---
Author Organization [facility] [employer] Address [address] [place] [address] Care Team Providers Care Director Of Dance Name Role Phone Fercho Kumar MD Unavailable [phone] Mitch Barrera MD Primary Care Provider Allergies [...] 04/05/2021 Acute conjunctivitis of both eyes 12/19/2019 Medical History Medical History Date Comments Hypothyroid Social History Tobacco Use Types Packs/Day Years Used Date Smoking Tobacco: Former Cigarettes 0.4 5 1 998 - 2002 Smokeless Tobacco: Never Comments Unknown Sex and Gender Information Value Date Recorded Sex Assigned at Not on file Legal Sex Female 7:36 AM CDT Gender Identity Female 01/30/2020 7:43 AM CDT Sexual Orientation Not on file Obstetrics History Last Filed Vital Signs Vital Sign Reading Time Taken Comments Blood Pressure - - Pulse - - Temperature - - Respiratory Rate - - Oxygen Saturation - - Inhaled Oxygen Concentration - - Weight 77.1 kg (170 lb) 04/05/2021 3:21 PM CDT Height 160 cm (5' 3) 04/05/2021 3:21 PM CDT Body Mass Index 30.11 04/05/2021 3:21 PM CDT Plan of Treatment Health Maintenance Due Date Last Done Comments Breast Cancer Screening-Mammogram 1980 Cervical Cancer Screening 1980 Depression Screening 1980 Hepatitis C Screening 1980 DTaP/Tdap/Td Vaccine (1 - Tdap) 1991 Varicella Vaccines (1 of 2 - 13+ 2-dose series) 1993 Hepatitis B Screening 1998 Regular Well Visit/Exam 18-64 1998 Influenza Vaccine (Season Ended) 2025 HPV Vaccines Aged Out No longer eligi ble based on patient's age to complete this topic Pneumococcal vaccine <65 Aged Out No longer eligible based on patient's age to complete this topic Insurance [facility] CHOICE PLUS [facility] HMO/PPO Address: [facility] [address] [place] [address] [facility] CHOICE PL[facility] HMO/PPO Address: [place] [address] Care Teams Director Of Dance Relationship Specialty Start Date End Date Mitch Barrera MD [address] [place] [address] PCP - General Family Practice 03/22/21 Fercho Kumar MD [address] [place] [address] Referring Physician Obstetrics and Gynecology 03/15/21
== END 2025-02-28 08:56 | disposition home or self-care (01) ==
LOC: ANHIMG 08:57
PROVIDERS: PCP Family Medicine; Visit Provider Nurse Practitioner Family
DX: Z12.31 Encounter for screening mammogram for malignant neoplasm of breast (principal)
CPT/HCPCS: 77063; 77067